=== PATIENT | female | born 1945 | race African-American/Black ===

== ENCOUNTER 2020-10-07 17:06 | Inpatient (IN) | payer OTHER ==
[~2020-10-07] VITALS: Ht 157.5 cm; Wt 53.1 kg
[2020-10-07 17:08] VITALS: BP 124/74
[2020-10-07 19:16] LABS: HEMATOCRIT 27.9 % (37.0-47.0); HEMOGLOBIN 8.6 gm/dL (12.0-15.0); MCH 20.4 pg (26.0-34.0); MCHC 30.8 g/dL (28.0-37.0); MCV 66.2 fL (80.0-100.0); PLATELET COUNT 604 thou/uL (150-400); RDW 17.4 % (10.5-14.5); WBC 8.1 thou/uL (4.0-11.0)
[2020-10-07 19:25] LABS: CALCIUM 9.6 mg/dL (8.5-10.1); CREATININE 0.5 mg/dL (0.6-1.0); POTASSIUM 4.6 mmol/L (3.5-5.1)
[2020-10-07 19:31] LABS: ALBUMIN 2.8 g/dL (3.4-5.0); TOTAL BILIRUBIN 0.3 mg/dL (0.2-1.0); TOTAL PROTEIN 8.4 g/dL (6.4-8.2)
[2020-10-07 19:38] LABS: ABSOLUTE NEUTROPHILS 4.9 thou/uL (1.4-8.2); ANISOCYTOSIS 1+; MICROCYTES 2+; PLATELET ESTIMATE NORMAL
[2020-10-07 19:39] LABS: HYPOCHROMASIA SLIGHT
[2020-10-08] VITALS (8 sets, daily range): BP systolic 115–145; BP diastolic 60–82
[2020-10-08] MEDS ORDERED: NORCO5 PO ×2 (00:17→03:00)
[2020-10-08] MEDS ORDERED: HYDROCODON-ACE1 EAC7 PO (00:17)
[2020-10-08] MEDS ORDERED: GABAPENTIN 100100 MG PO (00:17)
[2020-10-08] MEDS ORDERED: METOPROLOL SUCC25 M1 PO (00:17)
[2020-10-08] MEDS ORDERED: ATORVASTATIN CA10 MG PO (00:17)
[2020-10-08] MEDS ORDERED: BENTYL 10 MG CA10 M1 PO (00:17)
[2020-10-08] MEDS ORDERED: HYDROCHLOROTH12.5 M2 PO (00:18)
[2020-10-08] MEDS ORDERED: K-DUR 20 MEQ T20 MEQ PO (00:18)
[2020-10-08] MEDS ORDERED: POTASSIUM20 PO (03:03)
[2020-10-08] MEDS ORDERED: SANTYL OINTMENT30 G1 TOP (03:05)
[2020-10-08 05:22] LABS: CALCIUM 9.3 mg/dL (8.5-10.1); CREATININE 0.6 mg/dL (0.6-1.0); HEMATOCRIT 24.8 % (37.0-47.0); HEMOGLOBIN 7.9 gm/dL (12.0-15.0); MCH 21.2 pg (26.0-34.0); MCHC 31.9 g/dL (28.0-37.0); MCV 66.5 fL (80.0-100.0); POTASSIUM 3.9 mmol/L (3.5-5.1); RBC 3.73 mil/uL (4.20-5.00); RDW 17.2 % (10.5-14.5); WBC 6.7 thou/uL (4.0-11.0)
[2020-10-08 05:26] LABS: CHOLESTEROL 113 mg/dL (<200); HDL CHOLESTEROL 41 mg/dL (>40); LDL CHOLESTEROL 58 mg/dL (<100); TC:HDL 2.8 Ratio (Not establshd); TRIGLYCERIDE 73 mg/dL (<150); VLDL 15 mg/dL (<40)
[2020-10-08 05:39] LABS: SERUM ASSESSMENT Clear
[2020-10-08] MEDS ORDERED: ASA81BEC PO (06:34)
[2020-10-08] MEDS ORDERED: VITAMIN D3 COM1 EACH PO (06:39)
[2020-10-08] MEDS ORDERED: BIOFREEZE118 ML TOP (06:40)
[2020-10-08] MEDS ORDERED: ACIDOPHILUS CA1 EAC1 PO (06:41)
[2020-10-08] MEDS ORDERED: LOPERAMIDE2 MG PO (06:42)
[2020-10-08] MEDS ORDERED: SUPER THERAVIT1 EACH PO (06:42)
[2020-10-08] MEDS ORDERED: MAGNESIUM400 M1 PO (06:42)
[2020-10-08] MEDS ORDERED: GAS RELIEF80 MG PO (06:43)
[2020-10-08] MEDS ORDERED: TYLENOL EXTRA500 MG PO (06:44)
[2020-10-08 11:24] LABS: URINE BILIRUBIN NEGATIVE (Negative); URINE BLOOD 2+ (Negative); URINE COLOR YELLOW; URINE GLUCOSE-RANDOM* NEGATIVE (Negative); URINE KETONES NEGATIVE (Negative); URINE LEUKOCYTES 3+ (Negative); URINE NITRITE POSITIVE (Negative); URINE PROTEIN (DIPSTICK) NEGATIVE (Negative); URINE SPECIFIC GRAVITY 1.025 (1.005-1.035); URINE UROBILINOGEN 0.2 E.U./dl (0.2-1.0)
[2020-10-08 11:25] LABS: URINE CLARITY CLOUDY
[2020-10-08 11:41] LABS: SQUAMOUS 0-3 Few /LPF (0-3)
[2020-10-08 11:42] LABS: CASTS None Seen /LPF (None Seen); URINE RBC 1-2 Rare /HPF (NONE SEEN); URINE WBC >25 Many /HPF (NONE SEEN)
[2020-10-08 11:43] LABS: BACTERIA >30 Many /HPF (None Seen); CRYSTALS None Seen /LPF (None Seen)
[2020-10-08 11:44] LABS: WBC CLUMPS Packed (None Seen); YEAST Present (None Seen)
--- NOTE | 2020-10-08 15:43 | NUR ---
ASSESSMENT: CM REVIEWED CHART AND ATTEMPTED TO MEET WITH PATIENT BUT SHE WAS OUT OF ROOM. 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 PT IS NEEDING SURGICAL DEBRIDEMENT WITH POSSIBLE VAC PLACEMENT. PT HAS HX OF RIGHT SIDED HEMIPARESIS. CM SPOKE WITH ASTER BELL FROM [facility] AND FAXED UPDATED CLINICAL INFORMATION. ARABELLA RODARTE REPORTS PATIENT HAS ONLY LIVED IN THE LTC FOR ABOUT A WEEK AND CAME TO THEM FROM [facility]. CM WILL CONTINUE TO FOLLOW TO ASSIST NEEDED.
--- NOTE | 2020-10-08 18:49 | NUR ---
PT ADMITED FROM ER. ADMISSION HX AND ASSESSMENT COMPLETED. VSS. CONSULT CALLED IN. HAD RIGHT BUTTOCK WOUND DEBRIDEMENT. WOUND VAC PLACED. NO CONCERNS AT THIS TIME.
[2020-10-09 02:58] VITALS: BP 122/63
[2020-10-09 04:40] VITALS: BP 115/55
[2020-10-09 05:23] LABS: HEMATOCRIT 24.3 % (37.0-47.0); HEMOGLOBIN 7.6 gm/dL (12.0-15.0); MCH 20.9 pg (26.0-34.0); MCHC 31.4 g/dL (28.0-37.0); MCV 66.7 fL (80.0-100.0); RBC 3.65 mil/uL (4.20-5.00); RDW 17.3 % (10.5-14.5); WBC 8.4 thou/uL (4.0-11.0)
[2020-10-09 05:28] LABS: CALCIUM 8.9 mg/dL (8.5-10.1); CREATININE 0.5 mg/dL (0.6-1.0); POTASSIUM 3.7 mmol/L (3.5-5.1)
--- NOTE | 2020-10-09 06:30 | NUR ---
PT SLEPT MOST OF SHIFT. PAIN MEDICATION GIVEN PRIOR TO SHIFT AND PT WAS ASKED IF SHE NEEDED ANYMORE AND SHE STATED "NO". VSS. FOLLOWING POC WITH IVF AND IVPB ANTIBIOTICS. HOURLY ROUNDING.
[2020-10-09 07:15] VITALS: BP 119/57
--- NOTE | 2020-10-09 15:34 | NUR ---
ASSUMED PT CARE THIS AM. PT IS ALERT & ORIENTED X4. PT HAS IV SITE ON R WRIST 20 GAUGE RUNNING NS AND ANTIBIOTICS. PT HAS LEA CATH IN PLACE. PT IS ACCUCHECK ACHS. PT HAS LOW LOSS AIR PUMP AND WOUND VAC. PT C/O OF PAIN AND NAUSEA AND GIVEN PAIN AND NAUSEA MEDICATION PER PT REQUEST. INFORMED LAB TO DRAW VANCO TROUGH THIS AM. REPORT CRITICAL VALUE TO PHARMACIST. GIVEN NEW DOSE OF VANCO TO PT PER PHARMACIST ORDERED. PT STATED SHE DOESN'T LIKE FOOD HERE IN THE HOSPITAL AND BEEN EATING FOOD FROM OUTSIDE. PT ON THE BED, BED ON THE LOWEST POSITION, SIDE RAILS UP, CALL LIGHT WITHIN REACH. WILL CONTINUE TO MONITOR PT. FOLLOW POC.
[2020-10-09 16:44] VITALS: BP 107/60
[2020-10-09 20:49] VITALS: BP 94/49
[2020-10-10 05:36] LABS: HEMATOCRIT 23.3 % (37.0-47.0); HEMOGLOBIN 7.3 gm/dL (12.0-15.0); MCH 20.9 pg (26.0-34.0); MCHC 31.4 g/dL (28.0-37.0); MCV 66.7 fL (80.0-100.0); RBC 3.49 mil/uL (4.20-5.00); RDW 17.6 % (10.5-14.5); WBC 6.7 thou/uL (4.0-11.0)
[2020-10-10 05:42] VITALS: BP 106/58
[2020-10-10 05:42] LABS: CALCIUM 8.3 mg/dL (8.5-10.1); CREATININE 0.5 mg/dL (0.6-1.0); POTASSIUM 3.3 mmol/L (3.5-5.1)
--- NOTE | 2020-10-10 05:46 | NUR ---
PT LYING IN BED. L[facility]AB PROVIDING PAIN RELIEF. TURNING PER PT REQUEST. WOUND VAC INTACT. RESTING COMFORTALY. NO NEEDS VOICED. CALL LIGHT WITHIN REACH. FREQUENT OBSERVATION.
[2020-10-10 08:12] VITALS: BP 117/66
--- NOTE | 2020-10-10 14:27 | HC ---
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 Radu Lomeli on 10/08/2020. HISTORY OF PRESENT ILLNESS: The patient is a 75-year-old woman admitted to [facility] on 10/07/2020. She has a history of immobility, status post cerebrovascular accident with right hemiparesis and has had a chronic right gluteal ulcer with history of chronic osteomyelitis in the setting of diabetes mellitus type 2. The patient's nursing staff at her facility noted the wound was worsening, getting larger with a foul smelling odor. The patient has been seen and admitted at [facility] and evaluated surgically by Dr. Radu Lomeli. She was taken to the operating room yesterday for surgical debridement of skin, subcutaneous tissue and bone for right ischial stage IV pressure ulcer. She is currently on IV vancomycin. Cultures were taken down to subcutaneous tissue and bone. She is on cefepime intravenously as well. Wound VAC was done on the OR. Wound care was consulted. PAST MEDICAL HISTORY: Diabetes mellitus type 2, cerebrovascular accident with right hemiparesis, immobility, neurogenic bladder, severe protein calorie malnutrition, albumin 2.8, history of chronic osteomyelitis of the right ischium. REVIEW OF SYSTEMS: Recent increased drainage, foul smell from the right ischial ulcer. ALLERGIES: PENICILLIN. LABORATORY DATA: White blood count 8.1, hemoglobin 8.6, hematocrit 27.9. Albumin 2.8. CT scan showed chronic osteomyelitis of the right ischial tuberosity. MEDICATIONS: See chart. PHYSICAL EXAMINATION: GENERAL: Shows a well-appearing elderly woman who is alert, pleasant, conversant. Mucous membranes are moist. [facility] [address] [place] [address] CONSULTATION Name: CHRISTI SARAH Room #: 445-P [facility]#: [id number] Admission: 10/07/20 Attend Phys: Maxim Escobedo MD Discharge: Date of : 49 Report #: [id number] NECK: Supple. LUNGS: Respirations unlabored. ABDOMEN: Soft. EXTREMITIES: Shows wound VAC on the right ischial area with treviño foam, wound VAC seals intact. Surrounding tissues are nonerythematous and nonindurated. No lower extremity wound. IMPRESSION: 1. Chronic immobility with right hemiparesis, status post cerebrovascular accident with immobility. 2. Neurogenic bladder. 3. Severe protein calorie malnutrition, albumin 2.8. 4. Chronic right ischial stage IV pressure ulcer with chronic osteomyelitis. 5. Postoperative day #1 on 10/09/2020, surgical debridement including bone of right ischial stage IV pressure ulcer with wound VAC placement. PLAN: IV antibiotics. Wound VAC therapy. We will plan to change the wound VAC again on Sunday. Wound care team will follow. <ELECTRONICALLY SIGNED> By: Jimy Moctezuma MD 10/10/20 1427 [id number] Jimy Moctezuma MD /nt
[2020-10-10 15:26] VITALS: BP 116/59
--- NOTE | 2020-10-10 18:16 | NUR ---
ASSUMED PT CARE THIS AM. PT IS ALERT & ORIENTED X4. PT HAS IV SITE ON R WRIST RUNNING NS @126 AND ANTIBIOTICS. PT IS ON BEDREST AND TURN Q2H. PT HAS LEA CATH IN PLACE, WOUND VAC AND R FOOT BOOT. PT HAS POOR APPETITE. PT C/O OF HIP PAIN AND GIVEN PAIN MEDICATION PER PT REQUEST. NO C/O OF NAUSEA AND VOMITING DURING THE SHIFT. PT FAMILY WAS AT THE BEDSIDE. PT ON THE BED WATCHING TV, BED ON THE LOWEST POSITION, SIDE RAILS UP, CALL LIGHT WITHIN REACH. WILL CONTINUE TO MONITOR PT. FOLLOW POC.
[2020-10-10 18:58] VITALS: BP 107/62
--- NOTE | 2020-10-11 04:38 | NUR ---
PT LYING IN BED. DENIES NEED FOR PAIN MEDICATION. TURNING PER PT REQUEST. RESTING COMFORTABLY. NO NEEDS VOICED. CALL LIGHT WITHIN REACH. FREQUENT OBSERVATION.
[2020-10-11 06:12] LABS: HEMATOCRIT 23.2 % (37.0-47.0); HEMOGLOBIN 7.1 gm/dL (12.0-15.0); MCH 20.5 pg (26.0-34.0); MCHC 30.6 g/dL (28.0-37.0); MCV 67.1 fL (80.0-100.0); RBC 3.46 mil/uL (4.20-5.00); RDW 17.6 % (10.5-14.5); WBC 8.1 thou/uL (4.0-11.0)
[2020-10-11 06:21] VITALS: BP 134/64
[2020-10-11 06:34] LABS: CALCIUM 8.6 mg/dL (8.5-10.1); CREATININE 0.5 mg/dL (0.6-1.0); POTASSIUM 3.6 mmol/L (3.5-5.1)
--- NOTE | 2020-10-11 08:02 | HC ---
[facility] [address] [place] [address] [place] [address] CONSULTATION Name: CHRISTI SARAH Room #: 445-P ADM IN M.R.#: [id number] Admission: 10/07/20 Attend Phys: Maxim Escobedo MD Discharge: Date of : 49 Report #: [id number] THIS REPORT FOR: cc: Fatimah Pressley,Prince Kellogg MD ~ DATE OF SERVICE: 10/08/2020 INFECTIOUS DISEASE CONSULTATION ATTENDING PHYSICIAN: Dr. Escobedo REASON FOR EVALUATION: Right ischial chronic osteomyelitis. HISTORY OF PRESENT ILLNESS: Chart reviewed and the patient examined. This is a 75-year-old woman with known history of diabetes mellitus type 2 complicated by vasculopathy, previous stroke with right-sided hemiparesis with chronic right ischial ulcer dating back roughly year per records. She notes it was worse over recent days and associated foul odor drainage as well. Due to concern about a deep infection, she was brought to the Emergency Room, was evaluated, which was significant microcytic anemia, sed rate of 80. CT of the pelvis did confirm large decubitus ulcer standing to the right ischial tuberosity, adjacent 3 cm fluid collection. There is second sinus track as well. Evidence favors a chronic osteomyelitis involving the ischial tuberosity. It is not clear if she has had significant fevers or chills. She said her appetite has been somewhat ____. Denies pulmonary or gastrointestinal related complaints. She was initiating combination therapy with cefepime and vancomycin. Surgery consult is pending as is wound care. ALLERGIES: Listed to PENICILLIN WHICH CAUSES HIVES, although she states this was extended ____ in the past. MEDICATIONS: Include atorvastatin, enoxaparin, vancomycin, zinc, cholecalciferol, multivitamin, metoprolol, Lactobacillus, aspirin, cefepime, hydrochlorothiazide, gabapentin, hydrocodone. PAST MEDICAL HISTORY: As described above diabetes mellitus type 2 which has been complicated by previous stroke with right-sided hemiparesis, history of neurogenic bladder, osteoarthritis, stage IV decubitus ulcer involving right ischial site, hypertension, hyperlipidemia, chronic anemia which is microcytic. SOCIAL HISTORY: She is disabled, nonsmoker. No ethanol. No illicit drug use. FAMILY HISTORY: Noncontributory. REVIEW OF SYSTEMS: Otherwise, unremarkable. [address] [address] CONSULTATION Name: CHRISTI SARAH Room #: [address] [place] [address] IN ..#: [id number] Admission: 10/07/20 Attend Phys: Maxim Escobedo MD Discharge: Date of : 49 Report #: [id number] PHYSICAL EXAMINATION: GENERAL: She appears chronically ill, undernourished. She is pleasant, cooperative. She is lucid, mild to moderate distress. VITAL SIGNS: Temperature 98.3, pulse 62, respirations 16, blood pressure 120/69. HEENT: Normocephalic. Extraocular muscles intact. NECK: Supple. LUNGS: Generally clear to auscultation, mildly diminished. HEART: Borderline bradycardic. I appreciate a murmur. ABDOMEN: Mildly distended, somewhat firm, nontender. GENITOURINARY AND RECTAL: Deferred. SKIN: Warm, dry. No rashes. Ischial site was evaluated as a stage IV decubitus ulcer seems to manually track to bone, marked degree of superficial inflammatory signs and symptoms. There is significant amount of necrotic tissue associated with naris odor. She does have some degree of pain with the examination. LABORATORY AND X-RAY DATA: Sodium 139, potassium 4.6, chloride 102, bicarbonate is 27, anion gap of 10. BUN and creatinine 24 and 0.5, glucose of 92. Albumin is 2.8, total protein 8.4. Estimated GFR of 147. LFTs unremarkable. CRP of 7.6. CBC: White count of 8.1, H and H 8.6 and 27.9, MCV of 66.2, platelet count of 604 likely indicative of acute phase reactant. CT of the pelvis as described above, large decubitus ulcer extending the right ischial tuberosity, adjacent 3 cm fluid collection, contiguous to primary ulcer, second sinus tract more posteriorly coursing in the median margin of ischial tuberosity, chronic osteomyelitis, changes of the right ischial tuberosity. Sed rate of 80. ASSESSMENT: Chronic right ischial tuberosity, osteomyelitis in the setting of chronic ulceration with underlying diabetes mellitus, vasculopathy, previous stroke, ____, continue combination therapy. At this point, we would expect polymicrobial etiology and Surgery to evaluate. I think would benefit from some sort of debridement and remove the devitalized tissue and perhaps bone biopsy would help confirming diagnosis of chronic osteomyelitis. We are expecting the risks of nosocomial complications and side affects, etc. We will add incentive spirometry. <ELECTRONICALLY SIGNED> By: Prince Rodriguez MD 10/11/20 0802 [id number] Prince Rodriguez MD /nt
[2020-10-11 08:58] VITALS: BP 131/57
--- NOTE | 2020-10-11 10:04 | NUR ---
Assumed care of pt at 0700. IV fluids and IV antibiotics infusing. Fernandez catheter in place. Wound cav in place. Possible discharge to [facility] today. Per ID doctor, pt will need a PICC line before discharge. Call light within reach. Fall precautions in place. Will continue to monitor.
--- NOTE | 2020-10-11 12:30 | NUR ---
WOUND CARE F/U; I WAS ASKED BY MADDIE RUIZ NP TO TAKE THE RIGHT ISCHIUM DRESSING DOWN AND TO PHOTO FOR DISCHARGE. THE WOUND IS APPROX. 6 X 6 X 5. BEEFY RED TISSUE. THE WOUND BLED AFTER REMOVING DRESSING. I USED A PIECE OF SURGIFOAM TO STOP THE BLEEDING, PACKED WITH NS MOIST GAUZE,ABD AND SECURED WITH TAPE. I ASSESSED THE DRESSING AFTER 15 MINUTES AND THERE IS NO STRIKE THROUGH BLEEDING. DISCUSSED WITH JAK.
--- NOTE | 2020-10-11 13:57 | NUR ---
ON-GOING ASSESSMENT: CM REVIEWED CHART AND SPOKE WITH ATTENDING. PT IS PROGRESSING WELL. PT HAD DEBRIDEMENT AND WOUND VAC WAS PLACED AND PT REMAINS ON IV ANBX. PER ATTENDING PATIENT MAY BE STABLE TO DISCHARGE BACK TO FACILITY TOMORROW. CM UPDATED ASTER BELL FROM [facility] AND SENT UPDATED CLINICAL WELL ID RECOMMENDATIONS. ARABELLA RODARTE STATING SHE IS WORKING ON ORDERING THE WOUND VAC. CM ALSO LEFT A VM WITH PATIENTS DAUGHTER JAVIER. CM SPOKE WITH HER THIS AM AND SHE IS AGREEABLE WITH PLAN. CM WILL CONTINUE TO FOLLOW TO ASSIST NEEDED. PT IS HAVING PICC LINE PLACED TODAY AND WILL START MEROPENEM.
[2020-10-11 19:35] VITALS: BP 111/62
--- NOTE | 2020-10-12 02:03 | NUR ---
ASSUMED PT CARE AT 1900.PT C/O PAIN TO HER BUTTOCK,MANAGED WITH MED.PT REPOSITIONED WHILE IN BED.PT HAD A DARK MOD STOOL AT HS.DRSG TO HER BUTTOCK DONE,WOUND WAS BEEFY RED WITH NO S/S OF INFECTION NOTED.LOW AIR LOSS MATTRESS IN PLACE.R SIDED HEMIPARESIS NOTED.CALL LIGHT WITHIN REACH.
[2020-10-12 06:12] VITALS: BP 109/58
[2020-10-12 07:34] VITALS: BP 118/68
--- NOTE | 2020-10-12 11:53 | NUR ---
Pt was lethargic soft spoken this am. She had multiple bouts of dark loose stools. Pt is unable to ambulate so she has to be turned q 2 due to pressure ulcer on her buttock. She also had 2 loose BM's on last nights shift. ordered CT scan of abdomen. Infectious disease called to notify staff pt should be in isolation due to ESBL from wound. Pt is alert and oriented and has a PICC line to left upper arm. She is a possible discharge today to [facility]. She conitnues to be a high fall risk bed is in low position. Will continue to monitor throughout shift.
--- NOTE | 2020-10-12 14:29 | NUR ---
on-going assessment: CM REVIEWED CHART AND SPOKE WITH ATTENDING. PT WAS PROGRESSING TOWARDS DISCHARGE GOALS BUT WAS HAVING ABOMDINAL PAIN. PT HAD CT AND IS NOT DISCHARING TODAY APPEARS IMPACTED AND PER ATTENDING HE HAS ORDERED EMEMAS. CM UPDATED ASTER BELL FROM [facility] SHE REPORTS THEY WILL BE ABLE TO ACCEPT PATIENT ONCE STABLE AND THE WOUND VAC WAS DELIVERED TO THEIR FACILITY TODAY. CM WILL CONTINUE TO FOLLOW TO ASSIST NEEDED. BEDSIDE RN AND PT UPDATED.
[2020-10-12 16:00] VITALS: BP 122/65
[2020-10-12 23:00] VITALS: BP 148/77
[2020-10-13 03:30] VITALS: BP 100/47
--- NOTE | 2020-10-13 05:19 | NUR ---
PER REPORT,PT WAS GIVEN ENEMA AND SHE HAD A LARGE BM.SINCE SHIFT CHANGE,PT CONT T HAVE LOOSE DARK STOOL.DRSG CHANGE DONE WITH EACH.PT REPOSITIONED IN BED PER HER REQUEST.LEA CATH IN PLACE.TYLENOL GIVEN X1 PER PT'S REQUEST FOR PAIN.FALL AND ISOLATION PRECAUTIONS MAINTAINED.CALL LIGHT WITHIN REACH.
[2020-10-13 05:48] LABS: HEMATOCRIT 22.2 % (37.0-47.0); MCH 20.7 pg (26.0-34.0); MCHC 31.3 g/dL (28.0-37.0); MCV 66.2 fL (80.0-100.0); RBC 3.36 mil/uL (4.20-5.00); RDW 17.7 % (10.5-14.5); WBC 8.2 thou/uL (4.0-11.0)
[2020-10-13 06:27] LABS: CALCIUM 8.5 mg/dL (8.5-10.1); CREATININE 0.5 mg/dL (0.6-1.0)
[2020-10-13 07:53] VITALS: BP 139/77
--- NOTE | 2020-10-13 09:41 | PATH ---
[facility] [address] [place] [address] PATHOLOGY RPT PROCEDURE Name: AURORA ESTRADA Room #: 445-P ADM IN M.R.#: [id number] Admission: 10/07/20 Date of : 49 Discharge: Report #: [id number] Path Case #: [id number] [facility] Accession Number: [id number] . 01 Material submitted: . pelvis - RIGHT ISCHIAL TUBEROSITY BONE. Modifiers: right, ISCHIUM . 01 Clinical history: . INCISION AND DRAINAGE SACRAL WOUND RIGHT ISCHIAL TUBEROCITY WOUND . 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 (IUV:track patrol; 10/12/2020) MBR 10/12/2020 1335 Local . 02 Electronically signed: . Adry Patel MD, Pathologist NPI- [id number] . 01 Gross description: . Received in formalin labeled "Aurora Estrada, right tissue tuberosity" is an irregular, hart white unoriented portion of bone measuring 1.6 x 0.9 x 0.5 cm. Specimen is serially sectioned to reveal a hart-white gritty cut surface. The specimen is entirely submitted after decalcification in cassette A1.([facility]; 10/10/2020) GZA/GZA 10/12/2020 [facility]2 Local . 02 Pathologist provided ICD-10: M86.10, M87.9 . 02 CPT . 677341, 942321 Specimen Comment: A courtesy copy of this report has been sent to [phone], [phone] Specimen Comment: [phone], Specimen Comment: Report sent to , DR FUNG / DR MILLER Specimen Comment: A duplicate report has been generated due to demographic updates. Performed at: 01 [facility] [address] [id number] MD Hayes Monterroso MD Phone: [phone] Performed at: 02 [place] [address] PATHOLOGY RPT PROCEDURE Name: AURORA ESTRADA Room #: 445-P ADM IN M.R.#: [id number] Admission: 10/07/20 Date of : 49 Discharge: Report #: [id number] Path Case #: [id number] [address] [facility], [place], [place] [id number] MD Adry Patel MD Phone: [phone]
--- NOTE | 2020-10-13 14:08 | NUR ---
ON-GOING ASSESSMENT: CM REVIEWED CHART AND SPOKE WITH ATTENDING. ATTENDING SPOKE WITH PATIENTS JAYA ARCOS TO UPDATE. WOUND CARE IS FOLLOWING PATIENT AND GENERAL SURGERY SAW PATIENT AND PLANS ARE FOR POSSIBLE OSTOMY. CM UPDATED ASTER BELL AT [facility] AND SENT UPDATED CLINICAL. CM ALSO SPOKE WITH ATTENDING AND ORDERED PT/OT FOR PATIENT. CM ALSO CONTACTED REGISTRATION TO PLEASE UPDATE THE CONTACT INFORMATION AND ADD JAYA ARCOS [phone]. CM WILL CONTINUE TO FOLLOW TO ASSIST NEEDED.
[2020-10-13 15:12] LABS: % SATURATION 7 % (20-39); IRON 12 ug/dL (50-170); TIBC 165 ug/dL (250-450)
[2020-10-13 15:14] VITALS: BP 128/69
[2020-10-13 15:40] LABS: FOLIC ACID 11.5 ng/mL (8.6-58.9)
[2020-10-13 19:45] VITALS: BP 114/65
--- NOTE | 2020-10-13 20:05 | NUR ---
ASSUMED PT CARE THIS AM. PT IS ALERT & ORIENTED X4/ PT HAS IV SITE ON L UA SINGLE LUMEN PICC LINE SALINE LOCKED. PT IS ON ROOM AIR. PT IS ON ISOLATION CHART DUE TO ESBL. DID WOUND CARE ON R ISCHIAL TUBEROSITY WITH NS AND SALINE WET TO DRY DRESSING. PT HAD KUB THIS AFTERNOON. PT TOLERATED MEDICATION AND DIET WELL. NO C/O OF PAIN, NAUSEA AND VOMITING. PT ON THE BED, BED ON THE LOWEST POSITION, SIDE RAILS UP, CALL LIGHT WITHIN REACH. WILL CONTINUE TO MONITOR PT. FOLLOW POC.
[2020-10-14 03:25] VITALS: BP 101/52
--- NOTE | 2020-10-14 03:54 | NUR ---
PT C/O PAIN TO HER BUTTOCK,MANAGED WITH MED.PT STILL HAVING LOOSE DARK STOOL.PT REF ALL HER STOOL SOFTNER [facility] AT HS.PT REPOSITIONED IN BED PER HER REQUEST.PT IS SUPPOSED TO GET A DIVERTING COLOSTOMY DUE TO HER SACRAL WOUND.PT STILL WORRIED ABOUT HAVING A COLOSTOMY.PT EDUCATED ON THE IMPORTNACE OF HAVING THE COLOSTOMY.FALL AND ISOLATION PRECAUTION MAINTAINED.CALL LIGHT WITHIN REACH.
[2020-10-14 07:35] VITALS: BP 120/64
[2020-10-14 09:22] LABS: HEMATOCRIT 23.7 % (37.0-47.0); HEMOGLOBIN 7.4 gm/dL (12.0-15.0); MCH 20.8 pg (26.0-34.0); MCHC 31.2 g/dL (28.0-37.0); MCV 66.6 fL (80.0-100.0); RBC 3.56 mil/uL (4.20-5.00); RDW 18.1 % (10.5-14.5); WBC 7.1 thou/uL (4.0-11.0)
[2020-10-14 09:36] LABS: CALCIUM 8.6 mg/dL (8.5-10.1); CREATININE 0.5 mg/dL (0.6-1.0); POTASSIUM 3.9 mmol/L (3.5-5.1)
--- NOTE | 2020-10-14 10:01 | NUR ---
ORDERS RECEIVED, CHART REVIEWED. PLAN FOR DIVERTING COLOSTOMY 10/15, WILL NEED NEW ORDERS, THEREFORE OT EVAL DEFERRED AND TO BE ON HOLD AT THIS TIME. WILL AWAIT POST OP ORDERS AND SEE AFTER. THANK YOU.
--- NOTE | 2020-10-14 12:01 | NUR ---
ON-GOING ASSESSMENT: CM REVIEWED CHART AND SPOKE WITH ATTENDING PHYSICIAN WHO REPORTS PATIENT IS GOING TO HAVE A DIVERTING COLOSTOMY TOMORROW. CM UPDATED LIASON ARABELLA FROM [facility]. CM WILL CONTINUE TO FOLLOW TO ASSIST NEEDED.
[2020-10-14 16:17] VITALS: BP 145/71
--- NOTE | 2020-10-14 19:52 | NUR ---
Pt is AXOX4. She is bedridden with diarreha x5. Everytime we had to change dressing on pressure ulcer on buttock. She signed consent for surgery tomorrow for a colostomy. Also signed consent to receive blood if needed. Fernandez was leaking so we had to take it out and put a new one in. Pt ocassionally reports discomfort at pressure injury site and is encouraged to reposition and turn regularly to prevent pressure at site and avoid additional pressure ulcers. High fall risk bed in low position fall precautions in place. Call light within reach.
[2020-10-15] VITALS (12 sets, daily range): BP systolic 130–149; BP diastolic 59–86
[2020-10-15 06:01] LABS: HEMATOCRIT 23.5 % (37.0-47.0); HEMOGLOBIN 7.3 gm/dL (12.0-15.0); MCH 20.5 pg (26.0-34.0); MCHC 31.1 g/dL (28.0-37.0); RBC 3.56 mil/uL (4.20-5.00); WBC 7.7 thou/uL (4.0-11.0)
[2020-10-15 06:29] LABS: CALCIUM 8.7 mg/dL (8.5-10.1); CREATININE 0.5 mg/dL (0.6-1.0); POTASSIUM 3.5 mmol/L (3.5-5.1)
--- NOTE | 2020-10-15 08:08 | NUR ---
PT LYING IN BED. DENIES NEED FOR PAIN MEDS. INCONTINENT OF BOWEL. RESTING COMFORTABLY. NO NEEDS VOICED. CALL LIGHT WITHIN REACH. FREQUENT OBSERVATION.
--- NOTE | 2020-10-15 14:22 | NUR ---
ON-GOING ASSESSMENT: CM REVIEWED CHART AND SPOKE WITH ATTENDING. PT HAD DIVERTING COLOSTOMY TODAY. CM FAXED UPDATED CLINICAL TO ASTER FROM [facility]. PT/OT VARIANCED DUE TO PATIENTS SURGERY TODAY. CM WILL CONTINUE TO FOLLOW, NO ANTICIPATED WEEKEND DISCHARGE.
--- NOTE | 2020-10-15 16:26 | NUR ---
Pt went down for colonoscopy at 750 am. She returned from surgery at 12:15. AxOx4 c/o pain level 6 resolved with meds. Also c/o sore throat ordered cephacol lozenges. Fernandez patent and draining yellow urine. Pt remains on bedrest. Bed in low position fall precautions in place. Call light within reach. Will monitor until end of shift.
--- NOTE | 2020-10-16 06:05 | NUR ---
Pt. rested quietly during the night when checked on during frequent rounds. She offers no complaints. Colostomy is intact and she has been passing some flatus. Small amount of blood in the bag. She offers no c/o pain.
[2020-10-16 07:35] VITALS: BP 119/62
[2020-10-16 07:50] LABS: CALCIUM 8.5 mg/dL (8.5-10.1); CREATININE 0.5 mg/dL (0.6-1.0); MAGNESIUM 1.9 mg/dL (1.8-2.4); PHOSPHORUS 2.5 mg/dL (2.5-4.9); POTASSIUM 3.2 mmol/L (3.5-5.1)
[2020-10-16 10:56] LABS: HEMOGLOBIN 6.9 gm/dL (12.0-15.0)
[2020-10-16 10:57] LABS: HEMATOCRIT 22.9 % (37.0-47.0); MCH 20.3 pg (26.0-34.0); MCHC 30.2 g/dL (28.0-37.0); MCV 67.3 fL (80.0-100.0); RBC 3.4 mil/uL (4.20-5.00); RDW 18.4 % (10.5-14.5); WBC 10.5 thou/uL (4.0-11.0)
--- NOTE | 2020-10-16 15:00 | NUR ---
Pt is Ax0x4. Had large soft stool at beginning of shift changed dressing on buttock wound. Picc line to upper left arm flushed and patent. Pt eat refused bowel medications. Remains on bed rest. Bed in low position fall precautions in place. Turned q 2 hours to prevent further breakdown. No c/o pain on this shift. Call light is within reach. Gave report at 1400 to remaining RN.
[2020-10-16 16:05] VITALS: BP 109/60
[2020-10-16 23:08] VITALS: BP 102/64
[2020-10-17 06:20] LABS: CALCIUM 8.3 mg/dL (8.5-10.1); CREATININE 0.4 mg/dL (0.6-1.0); MAGNESIUM 1.9 mg/dL (1.8-2.4); POTASSIUM 3.3 mmol/L (3.5-5.1)
[2020-10-17 07:50] LABS: HEMATOCRIT 21.3 % (37.0-47.0); HEMOGLOBIN 6.5 gm/dL (12.0-15.0); MCH 20.3 pg (26.0-34.0)
[2020-10-17 07:51] LABS: MCHC 30.5 g/dL (28.0-37.0); MCV 66.5 fL (80.0-100.0); RBC 3.2 mil/uL (4.20-5.00); WBC 7.5 thou/uL (4.0-11.0)
[2020-10-17 07:54] VITALS: BP 114/66
[2020-10-17 09:27] VITALS: BP 104/54; BP 106/64; BP 108/56; BP 108/60
--- NOTE | 2020-10-17 10:32 | NUR ---
Assumed care of pt at 0700. Pt a&ox4. RN notices hg 6.9 last drawn the previous day in the am. Provider notified. Hg redrawn - 6.5. Blood transfusion ordered. Blood transfusing. Colostomy in place. Fernandez catheter in place. PICC line in place. Dressing c/d/i. W2h turn. Call light within reach. Fall precautions in place. Will continue to monitor.
[2020-10-17 15:08] VITALS: BP 102/62
[2020-10-17 18:08] LABS: HEMATOCRIT 25.5 % (37.0-47.0); HEMOGLOBIN 8.3 gm/dL (12.0-15.0)
[2020-10-17 20:47] VITALS: BP 105/41
--- NOTE | 2020-10-18 02:41 | NUR ---
PT IS A/O X4 AND IS ON BED REST. ROOM AIR. VSS. AFEBRILE. DENIES C/O PAIN OR DISCOMFORT. REPOSITIONED OFTEN FOR COMFORT. DRSG TO BUTTOCKS IS C/D/I. COLOSTOMY HAS STARTED TO PRODUCE DARK BROWN LOOSE STOOLS. PT REMAINS HAVING INCONTINENCE OF STOOL FROM THE RECTUM. LEA IN PLACE AND IS DRAINING APPROPRIATELY. FALL PRECAUTIONS IN PLACE, CALL LIGHT IS WITHIN REACH. WILL CONTINUE TO MONITOR.
[2020-10-18 07:20] VITALS: BP 123/67
[2020-10-18 08:42] LABS: CALCIUM 8.4 mg/dL (8.5-10.1); CREATININE 0.5 mg/dL (0.6-1.0); MAGNESIUM 1.7 mg/dL (1.8-2.4); POTASSIUM 3.4 mmol/L (3.5-5.1)
--- NOTE | 2020-10-18 10:02 | NUR ---
OSTOMY CARE; AWAKE, ALERT, COOPERATIVE, POUCH EDGES LOOSE, NEW POUCH BEN 2 PIECE SYSTEM APPLIED W/ ADAPT RING UNDER WAFER, STOMA RED VIABLE BUDDED W/ STOMA SUPPORT BRIDGE IN PLACE, SMALL AMT LIQ STOOL NOTED, RECEPTIVE TO EDUCATION, QUESTIONS ANSWERED REGARDING OSTOMY CARE/MANAGEMENT, INFO AND SUPPLIES PLACED AT BS, WILL CONT TO FOLLOW RECOMMENDATIONS; CHANGE POUCH Q 3-5 DAYS AND PRN, EMPTY PRN ASSOCIATE PROFESSOR OF AUTOMATION AWARE
--- NOTE | 2020-10-18 10:11 | NUR ---
Assumed care of pt at 0700. Pt a&ox4. Flat affect. Colostomy in place. Draining liquid stool. Dressing c/d/i. Fernandez catheter in place. PICC line in place. Pain controlled. Call light within reach. Fall precautions in place. Will continue to monitor.
[2020-10-18 15:38] VITALS: BP 120/64
--- NOTE | 2020-10-18 15:45 | NUR ---
on-going assessment: cm reviewed chart and spoke with attending. cm updated liason from [facility] and faxed updated clinical including ostomy note. cm spoke with patients daughter kelly to update and possible discharge soon. PT WAS ADVANCED TO FULL LIQUIDS TODAY. CM WILL CONTINUE TO FOLLOW AND AWAITING UNTIL PT IS CLEARED BY SURGERY FOR D/C.
[2020-10-18 21:18] VITALS: BP 131/65
--- NOTE | 2020-10-19 02:14 | NUR ---
ASSESSED AT START OF SHIFT. PT RESTING IN BED. DENIES PAIN, NAUSEA/VOMITING. IV INTACT AND ABX INFUSING. EVENING MEDS GIVEN AND PT DAPHNE IT WELL. REPOSITIONED FOR COMFORT. LIQUID DARK YELLOW COLOR OUTPUT NOTED IN COLOSTOMY BAG. FOLLEY TO D/D. ISOLATION MAINTAINED. FALL PREC IN PLACE AND CALL LIGHT AT REACH.
[2020-10-19 04:21] VITALS: BP 122/61
[2020-10-19 09:02] VITALS: BP 117/61
--- NOTE | 2020-10-19 11:27 | NUR ---
Assumed care of pt at 0700. Pt a&ox4. Fernandez catheter and colostomy in place. Dressing changed. IV antibiotics infusing. Denies pain. Call light within reach. Fall precautions in place. Will continue to monitor.
--- NOTE | 2020-10-19 13:39 | NUR ---
ON-GOING ASSESSMENT: ALESSANDRO REVIEWED CHART AND SPOKE WITH ATTENDING WHO REPORTS PT WILL BE MEDICALLY STABLE TO DISCHARGE BACK TO HER FACILITY IN 1-2 DAYS. ALESSANDRO [address]PO[address]. SEE WHO REPORTS PT WILL NEED TO REMAIN ON CURRENT IV ANBX FOR ABOUT 4 WEEKS LONGER AND GET WEEKLY LABS. CM FAXED UPDATED CLINICAL AND NOTIFIED ARABELLA RODARTE FROM [facility] [place] WHO REPORTS THAT SHOULD BE FINE AND SHE WILL MAKE SURE FACILITY IS OK WITH GALE OF ANBX. PT ALREADY HAS PICC LINE. CM WILL CONTINUE TO FOLLOW TO ASSIST NEEDED. [facility]ER REPORTS THEY STILL HAVE WOUND VAC AT THE FACILITY. ALESSANDRO SPOKE WITH [employer]SEMBLER [employer]HICLE IN WOUND CARE THEY ROUNDED AND SHE STATED FACILITY CAN APPLY VAC WHEN PT ARRIVES TO THEM.
[2020-10-19 19:37] VITALS: BP 138/64
--- NOTE | 2020-10-20 02:28 | NUR ---
ASSUMED CARE OF PT AT SHIFT CHANGE. PT IS AOX3-4 AND LETS NEEDS BE KNOWN. FALL PERCAUTION IN PLACE. PT HAS R SIDED WEAKNESS. LEA IN PLACE. COLOSTOMY IN PLACE AND FUNCTIONAL. PT HAD SOME RECTAL DRAINAGE. PT SLEPT PART OF THE SHIFT. VSS AND NO S/S OF ACUTE DISTRESS. PT TOLERATING PO DIET. WILL CONTINUE TO MONITOR FOR CHANGES.
[2020-10-20 05:02] VITALS: BP 165/81
[2020-10-20 05:55] VITALS: BP 152/67
[2020-10-20 07:25] VITALS: BP 145/67
--- NOTE | 2020-10-20 11:31 | NUR ---
ASSUMED PT CARE THIS AM. PT IS ALERT & ORIENTED X4. PT HAS IV SITE ON L UA SINGLE LUMEN PICC LINE. PT IS ON BREDREST. PT HAS LEA CATH IN PLACE AND OSTOMY. DID WOUND CARE AND TOOK PICTURE ON THE R BUTTOCK. PT IS ON ROOM AIR. INFORMED DR THAT PT WAS HAVING BM VIA RECTUM. CALLED DR MILLER THAT OSTOMY NURSE WILL REMOVE OSTOMY ESME TOMORROW MORNING INSTEAD TODAY. PT TOLERATED MEDICATION AND DIET WELL. GIVEN PAIN MEDICATION PER PT REQUEST. PT HAS BOOTS ON. PT ON THE BED, BED ON THE LOWEST POSITION, SIDE RAILS UP, CALL LIGHT WITHIN REACH. WILL CONTINUE TO MONITOR PT. FOLLOW POC.
--- NOTE | 2020-10-20 14:09 | NUR ---
ON-GOING ASSESSMENT: CM REVIEWED CHART AND SPOKE WITH ATTENDING. ATTENDING STATING STILL MONITORING PATIENTS OUTPUT AND PLAN FOR LIKELY [place] [facility] [place]PDATED [facility] [place] [facility] [place] CM FAXED UDPATED CLINICAL. CM ALSO UPDATED JAVIER PTS DAUGHTER. CM WILL CONTINUE TO FOLLOW.
[2020-10-20 15:45] VITALS: BP 122/58
[2020-10-20 19:55] VITALS: BP 134/68
[2020-10-20 20:42] LABS: HEMATOCRIT 24.7 % (37.0-47.0); HEMOGLOBIN 7.9 gm/dL (12.0-15.0); MCH 21.8 pg (26.0-34.0); MCHC 31.8 g/dL (28.0-37.0); MCV 68.5 fL (80.0-100.0); RBC 3.6 mil/uL (4.20-5.00); RDW 20.1 % (10.5-14.5); WBC 9.2 thou/uL (4.0-11.0)
[2020-10-20 20:52] LABS: CALCIUM 8.7 mg/dL (8.5-10.1); CREATININE 0.5 mg/dL (0.6-1.0); MAGNESIUM 1.9 mg/dL (1.8-2.4); POTASSIUM 3.8 mmol/L (3.5-5.1)
[2020-10-21 06:09] LABS: HEMATOCRIT 24.2 % (37.0-47.0); HEMOGLOBIN 7.7 gm/dL (12.0-15.0); MCHC 31.8 g/dL (28.0-37.0); MCV 69.1 fL (80.0-100.0); RBC 3.51 mil/uL (4.20-5.00); RDW 19.6 % (10.5-14.5); WBC 8.3 thou/uL (4.0-11.0)
[2020-10-21 06:27] LABS: CALCIUM 8.5 mg/dL (8.5-10.1); CREATININE 0.5 mg/dL (0.6-1.0); MAGNESIUM 1.9 mg/dL (1.8-2.4); POTASSIUM 3.7 mmol/L (3.5-5.1)
--- NOTE | 2020-10-21 06:51 | NUR ---
ASSUMED PT'S CARE THIS PM SHIFT. ALERT AND ORIENTED. VSS. OSTOMY CHANGED THIS SHIFT DUE TO LEAKAGE. DRESSING TO BUTTOCKS CHANGED THIS SHIFT. LEA IN PLACE FOR VOIDING. MEDS GIVEN PER EMAR. ANTICIPATING DC TODAY.
[2020-10-21 07:40] VITALS: BP 120/74
[2020-10-21 08:35] VITALS: BP 120/74
--- NOTE | 2020-10-21 09:13 | NUR ---
OSTOMY CARE; AWAKE, ALERT, COOPERATIVE, DAUGHTER AT BS, STOMA SUPPORT BRIDGE REMOVED PER DR MILLER ORDERS, REMOVED W/OUT DIFFICULTY, STOMA PINKISH RED VIABLE BUDDED W/ SCANT LIQ BROWN STOOL NOTED, PERISTOMAL SKIN INTACT, NEW POUCH BEN 2 PIECE SYSTEM W/ ADAPT RING APPLIED, SUPPLIES AND INFO AT BS RECOMMENDATIONS; CHANGE POUCH Q 3-5 DAYS AND PRN, EMPTY PRN TOP WADDY AWARE
--- NOTE | 2020-10-21 11:46 | NUR ---
ASSUMED PT CARE THIS AM. PT IS ALERT & ORIENTED X4. PT HAS L UA SINGLE LUMEN PICC LINE. PT HAS LEA AND COLOSTOMY ON. PT IS ON ROOM AIR. PT TOLERATED MEDICATION AND DIET WELL. NO C/O OF NAUSEA AND VOMITING THIS AM. PT DAUGHTER WAS AT THE BEDSIDE. WILL CONTINUE TO MONITOR PT. FOLLOW POC.
[2020-10-21] MEDS ORDERED: MEROPENEM1 GM IV (13:32)
[2020-10-21] MEDS ORDERED: VANCO 750750 MG/150 IV (13:33)
--- NOTE | 2020-10-21 14:22 | NUR ---
ON-GOING ASSESSMENT: CM REVIEWED CHART AND SPOKE WITH ATTENDING. PT IS MEDICALLY STABLE TO [place] [facility] [place]. CM NOTIFIED LIASON [place] [facility] [place] CONFIRMED THEY CAN ACCEPT HER TODAY AND THEY HAVE ALREADY ARRANGED STRETCHER TRANSPORT FOR 1500. BEDSIDE RN, PATIENT, AND HER DAUGHTER ARE AWARE. CHART COPY WAS ORDERED. CM FAXED D/C PAPERWORK TO THE FACILITY AND CONFIRMED THEY RECEIVED IT. PT REPORTS NO FURTHER QUESTIONS OR NEEDS FROM CM. PTS DAUGHTER ISRRAEL IS AWARE AND AGREEABLE WITH PLAN. BEDSIDE RN HAS THE NUMBER FOR REPORT. CASE CLOSED.
== END 2020-10-21 15:20 | DRG 579 ==
LOC: ER 17:06 → EROBS 21:25 → 4S 21:25
PROVIDERS: Anesthesiology; Internal Medicine; Nurse Practitioner Family; ADMIT Hospitalist; ATTEND Hospitalist
PROC: 0QB20ZZ Excision of Right Pelvic Bone, Open Approach (ICD-10-PCS; principal; 2020-10-08)
PROC: 0D1M4Z4 Bypass Descending Colon to Cutaneous, Percutaneous Endoscopic Approach (ICD-10-PCS; 2020-10-15)
PROC: 30233N1 Transfusion of Nonautologous Red Blood Cells into Peripheral Vein, Percutaneous Approach (ICD-10-PCS; 2020-10-17)
PROC: 05HY33Z Insertion of Infusion Device into Upper Vein, Percutaneous Approach (ICD-10-PCS; 2020-10-21)
DX: L89.314 Pressure ulcer of right buttock, stage 4 (principal); E43 Unspecified severe protein-calorie malnutrition; M86.8X8 Other osteomyelitis, other site; I69.351 Hemiplegia and hemiparesis following cerebral infarction affecting right dominant side; M19.90 Unspecified osteoarthritis, unspecified site; I10 Essential (primary) hypertension; E78.5 Hyperlipidemia, unspecified; E11.69 Type 2 diabetes mellitus with other specified complication; N31.9 Neuromuscular dysfunction of bladder, unspecified; R53.81 Other malaise; K59.00 Constipation, unspecified; D50.9 Iron deficiency anemia, unspecified; Z88.0 Allergy status to penicillin; Z68.21 Body mass index [BMI] 21.0-21.9, adult
CPT/HCPCS: 10195; 27000; 50010; 50101; 50366; 50386; 50403; 50555; 50643; 52265; 53307; 53310; 54118; 56462; 56526; 57092; 57119; 57120; 58574; 58586; 62110; 62900; 70005

== ENCOUNTER → 2020-11-03 | Outpatient (CLI) | payer OTHER ==
[~2020-11-03] MED LIST: ACIDOPHILUS CA1 EAC1 PO; ASA81BEC PO; ATORVASTATIN CA10 MG PO; BENTYL 10 MG CA10 M1 PO; BIOFREEZE118 ML TOP; GABAPENTIN 100100 MG PO; GAS RELIEF80 MG PO; HYDROCHLOROTH12.5 M2 PO; HYDROCODON-ACE1 EAC7 PO; K-DUR 20 MEQ T20 MEQ PO; LOPERAMIDE2 MG PO; MAGNESIUM400 M1 PO; MEROPENEM1 GM IV; METOPROLOL SUCC25 M1 PO; NORCO5 PO; POTASSIUM20 PO; SANTYL OINTMENT30 G1 TOP; SUPER THERAVIT1 EACH PO; TYLENOL EXTRA500 MG PO; VANCO 750750 MG/150 IV; VITAMIN D3 COM1 EACH PO
== END ==
LOC: HYPER 10:52
PROVIDERS: ATTEND Emergency Medicine
DX: E11.622 Type 2 diabetes mellitus with other skin ulcer (principal); L89.314 Pressure ulcer of right buttock, stage 4; L98.412 Non-pressure chronic ulcer of buttock with fat layer exposed; D63.8 Anemia in other chronic diseases classified elsewhere; R54 Age-related physical debility; I10 Essential (primary) hypertension; E78.5 Hyperlipidemia, unspecified; Z68.21 Body mass index [BMI] 21.0-21.9, adult; E44.0 Moderate protein-calorie malnutrition; Z79.82 Long term (current) use of aspirin; Z79.899 Other long term (current) drug therapy; Z93.3 Colostomy status

== ENCOUNTER → 2020-12-08 | Outpatient (CLI) | payer OTHER | LOC: HYPER 08:09 | PROVIDERS: ATTEND Emergency Medicine | DX: E11.622 Type 2 diabetes mellitus with other skin ulcer (principal); L89.314 Pressure ulcer of right buttock, stage 4; L98.411 Non-pressure chronic ulcer of buttock limited to breakdown of skin; E44.0 Moderate protein-calorie malnutrition; R54 Age-related physical debility; D63.8 Anemia in other chronic diseases classified elsewhere; E78.5 Hyperlipidemia, unspecified; I10 Essential (primary) hypertension; Z68.21 Body mass index [BMI] 21.0-21.9, adult; Z79.82 Long term (current) use of aspirin; Z79.899 Other long term (current) drug therapy; Z93.3 Colostomy status ==

== ENCOUNTER → 2020-12-22 | Outpatient (CLI) | payer OTHER | LOC: HYPER 07:47 | PROVIDERS: ATTEND Emergency Medicine | DX: E11.622 Type 2 diabetes mellitus with other skin ulcer (principal); L89.314 Pressure ulcer of right buttock, stage 4; L98.411 Non-pressure chronic ulcer of buttock limited to breakdown of skin; R54 Age-related physical debility; D63.8 Anemia in other chronic diseases classified elsewhere; I10 Essential (primary) hypertension; E78.5 Hyperlipidemia, unspecified; E44.0 Moderate protein-calorie malnutrition; Z68.21 Body mass index [BMI] 21.0-21.9, adult; Z93.3 Colostomy status; Z79.82 Long term (current) use of aspirin; Z79.899 Other long term (current) drug therapy ==

== ENCOUNTER → 2021-01-05 | Outpatient (CLI) | payer OTHER | LOC: HYPER 07:51 | PROVIDERS: ATTEND Emergency Medicine | DX: E11.622 Type 2 diabetes mellitus with other skin ulcer (principal); L89.314 Pressure ulcer of right buttock, stage 4; L98.411 Non-pressure chronic ulcer of buttock limited to breakdown of skin; E44.0 Moderate protein-calorie malnutrition; R54 Age-related physical debility; D63.8 Anemia in other chronic diseases classified elsewhere; I10 Essential (primary) hypertension; E78.5 Hyperlipidemia, unspecified; Z68.21 Body mass index [BMI] 21.0-21.9, adult; Z79.82 Long term (current) use of aspirin; Z79.899 Other long term (current) drug therapy ==

== ENCOUNTER 2021-01-24 13:37 | Inpatient (IN) | payer OTHER ==
[~2021-01-24] VITALS: Ht 160 cm; Wt 56.7 kg
[2021-01-24 13:38] VITALS: BP 93/51
[2021-01-24 14:51] LABS: HEMATOCRIT 31.9 % (37.0-47.0); HEMOGLOBIN 9.3 gm/dL (12.0-15.0); MCH 18.8 pg (26.0-34.0); MCHC 29.3 g/dL (28.0-37.0); MCV 64.2 fL (80.0-100.0); PLATELET COUNT 244 thou/uL (150-400); RBC 4.96 mil/uL (4.20-5.00); RDW 18.9 % (10.5-14.5); WBC 32.7 thou/uL (4.0-11.0)
[2021-01-24 14:54] LABS: CALCIUM 9.1 mg/dL (8.5-10.1); CREATININE 4.1 mg/dL (0.6-1.0); POTASSIUM 5.5 mmol/L (3.5-5.1)
[2021-01-24 15:03] LABS: URINE BILIRUBIN NEGATIVE (Negative); URINE BLOOD NEGATIVE (Negative); URINE COLOR YELLOW; URINE GLUCOSE-RANDOM* NEGATIVE (Negative); URINE KETONES NEGATIVE (Negative); URINE NITRITE-REFLEX NEGATIVE (Negative); URINE PROTEIN (DIPSTICK) 3+ (Negative); URINE SPECIFIC GRAVITY <= 1.005 (1.005-1.035); URINE UROBILINOGEN 0.2 E.U./dl (0.2-1.0)
[2021-01-24 15:04] LABS: ALBUMIN 2.6 g/dL (3.4-5.0); TOTAL BILIRUBIN 0.3 mg/dL (0.2-1.0); TOTAL PROTEIN 7.6 g/dL (6.4-8.2)
[2021-01-24 15:04] LABS: URINE CLARITY CLOUDY; URINE LEUKOCYTES-REFLEX 3+ (Negative)
[2021-01-24 15:30] LABS: CASTS None Seen /LPF (None Seen); SQUAMOUS 0-3 Few /LPF (0-3)
[2021-01-24 15:31] LABS: AMORPHOUS PHOSPHATES Moderate /LPF (None Seen); CRYSTALS None Seen /LPF (None Seen); URINE RBC 1-2 Rare /HPF (NONE SEEN); URINE WBC-REFLEX 6-15 Few /HPF (0-5)
[2021-01-24 16:02] LABS: ABSOLUTE NEUTROPHILS 28.1 thou/uL (1.4-8.2); ANISOCYTOSIS 1+; HYPOCHROMASIA 1+; MICROCYTES 1+
--- NOTE | 2021-01-24 19:02 | NUR ---
VAT CONSULTED FOR CVAD.PT'S LABS,MEDSMHXMORDER AND CONSENT VERIFIED. RIJ WAS WIDELY PATENT WITH USG. 6FR TL JACC 25CM INSERTED X1 STICK TO 8CM EXTERNAL. PT TOLERATED WELL. STAT CXR ORDERED.
--- NOTE | 2021-01-24 19:12 | NUR ---
rifrancisco released for immediate use per protocol to jimmy simmons
[2021-01-24 23:54] VITALS: BP 97/48
[2021-01-25 04:30] VITALS: BP 104/49
[2021-01-25 05:58] LABS: HEMATOCRIT 24.3 % (37.0-47.0); HEMOGLOBIN 7.4 gm/dL (12.0-15.0); MCH 19.5 pg (26.0-34.0); MCHC 30.7 g/dL (28.0-37.0); MCV 63.7 fL (80.0-100.0); RBC 3.81 mil/uL (4.20-5.00); RDW 18.8 % (10.5-14.5); WBC 19.4 thou/uL (4.0-11.0)
[2021-01-25 06:22] LABS: CALCIUM 8.5 mg/dL (8.5-10.1)
[2021-01-25 06:23] LABS: CREATININE 2.6 mg/dL (0.6-1.0); POTASSIUM 4.2 mmol/L (3.5-5.1)
--- NOTE | 2021-01-25 07:35 | EKG ---
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
[2021-01-25 12:34] LABS: ALBUMIN 2.3 g/dL (3.4-5.0); PHOSPHORUS 4.4 mg/dL (2.6-4.7)
[2021-01-25 15:41] VITALS: BP 111/48
[2021-01-25 16:23] VITALS: BP 111/48
[2021-01-25 17:00] VITALS: BP 105/56
[2021-01-25 19:53] VITALS: BP 111/54
--- NOTE | 2021-01-25 19:57 | NUR ---
PT TO THE UNIT FROM THE EMERGENCY ROOM - PT ORINETED TO ROOM AND BEDSPACE - PT NOTED TO HAVE PROFO BOOT ON R LOWER LEG AND FOOR - R SIDE UNABLE TO MOVE LEG IS ABLE TO LIGHTLY SQUEEZE WITH R HAND AND MOVE RIGHT ARM A LITTLE. PT DAPHNE DIET AND FLUIDS. IV FLUIDS CONT ORDERED. PT ORIENTED X 2. FAMILY AT THE BEDSIDE. NO CO'S OF PAIN OR NAUSEA. LEA CATH PRESENT. NO CO'S AT THE PRESENT TIME.
[2021-01-25 22:30] VITALS: BP 124/50; BP 130/62
[2021-01-26 04:19] VITALS: BP 128/58
[2021-01-26 06:28] LABS: HEMATOCRIT 26.7 % (37.0-47.0); HEMOGLOBIN 8.2 gm/dL (12.0-15.0); MCH 20.3 pg (26.0-34.0); MCHC 30.9 g/dL (28.0-37.0); MCV 65.8 fL (80.0-100.0); RBC 4.05 mil/uL (4.20-5.00); RDW 20.1 % (10.5-14.5); WBC 12.2 thou/uL (4.0-11.0)
[2021-01-26 06:45] LABS: ALBUMIN 2.1 g/dL (3.4-5.0); CALCIUM 8.4 mg/dL (8.5-10.1); PHOSPHORUS 2.8 mg/dL (2.5-4.9); POTASSIUM 3.6 mmol/L (3.5-5.1)
[2021-01-26 06:48] LABS: CREATININE 1.2 mg/dL (0.6-1.0)
--- NOTE | 2021-01-26 07:01 | NUR ---
ASSUMED CARE OF PT AT 1900. PT IS AOX2-3 76F UROSEPSIS PT. ADMINISTERED ALL ORDERED ANTIBIOTICS AND MEDS EARLY IN AFTERNOON. AFTERWARDS, GAVE 1 UNIT PRBC FOR HGB 7.3 FROM HEMATOURESIS. MATCHED, COSIGNED, AND ADMINISTERED WITH NO SIGNS OR SYMPTOMS OF REACTION. 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 AFTERWARDS, ALL ADMIT CHECKLIST COMPLETED. WILL GET CONSENTS SIGNED BY DAUGHTER DPSHAWNA IN AM. PT VERBALIZED NO PAIN THROUGHOUT THE NIGHT. LEA PATENT, WITH SOME SEDIMENT BUT NO BLOOD CLOTS. PT IS WEAK ON THE R DUE TO PAST CVA. LEA CHRONIC FOR NEUROGENIC BLADDER. BLOOD SUGAR IN THE 80S, WILL ENCOURAGE TO EAT SOME IN AM. BOOT R FOOT, SMALL STG 4 ULCER ON R BUTTOCK PICTURED, DOCUMENTED, AND REDRESSED. LOW OUTPUT THROUGH OSTOMY. SLEPT QUIETLY THROUGHOUT THE NIGHT AFTERWARDS WITH NO COMPLAINTS, OWNS SOME. WILL CONTINUE TO MONITOR AND PASS ON TO DAY SHIFT RN.
[2021-01-26 07:35] VITALS: BP 148/76
[2021-01-26 11:42] VITALS: BP 167/82
[2021-01-26 15:06] VITALS: BP 168/77
[2021-01-26 20:22] VITALS: BP 150/67
--- NOTE | 2021-01-27 03:49 | NUR ---
RECEIVED PATIENT AT 1900H.ON ROOM AIR BREATHING SPONTANEOUSLY.WITH RIGHT JUGULAR CENTRAL LINE INTACT.WITH LEA CATHETER INTACT, CATHETER IRRIGATION DONE ONCE.WITH COLOSTOMY INTACT.ALL NEEDS ATTENDED.FOR CONTINOUS MONITORING.
[2021-01-27 04:33] VITALS: BP 142/65
[2021-01-27 05:48] LABS: ALBUMIN 2.1 g/dL (3.4-5.0); CALCIUM 8.5 mg/dL (8.5-10.1); CREATININE 0.8 mg/dL (0.6-1.0); PHOSPHORUS 2.5 mg/dL (2.5-4.9)
[2021-01-27 07:28] LABS: HEMATOCRIT 27.9 % (37.0-47.0); HEMOGLOBIN 8.5 gm/dL (12.0-15.0); MCH 20.2 pg (26.0-34.0); MCHC 30.6 g/dL (28.0-37.0); MCV 66.1 fL (80.0-100.0); RBC 4.22 mil/uL (4.20-5.00); RDW 20.4 % (10.5-14.5); WBC 8.9 thou/uL (4.0-11.0)
[2021-01-27 07:33] VITALS: BP 167/78
[2021-01-27 11:15] VITALS: BP 169/79
--- NOTE | 2021-01-27 11:21 | NUR ---
met with patient who admits from [facility] with urinary sepsis. Patient A/Ox4, discussed role of casemgt. Patient plans return to [facility] once stable. Alerted plan to call dtr. Patient reports no need to call her dtr she knows she is at [facility]. Faxed clinical information to [facility] to update.
[2021-01-27] MEDS ORDERED: VANCOMYCIN500 MG/VIA IV (13:10)
--- NOTE | 2021-01-27 14:31 | NUR ---
VAT CONSULTED FOR PICC PLACEMEMT. LEFT UPPER BASILIC PICC PLACED, TRIMMED 42CM/2CM EXTERNAL. TIP LOCATION VERIFIED WITH 3CG AND RELEASED FOR USE, PER HOSPITAL VASCULAR ACCESS POLICY.
--- NOTE | 2021-01-27 14:48 | NUR ---
Patient to dc today to [facility]. Patient to rec IV antibiotics at facility. sp with [facility] who can accept for IV. Chart copied. Transfer forms faxed. Sawyer mills from [employer] for [phone]. Notified patient, RN and dtr. no further needs
[2021-01-27 15:43] VITALS: BP 184/86
--- NOTE | 2021-01-31 19:10 | HC ---
[facility] [place] [address] CONSULTATION Name: CHRISTI SARAH Room #: [facility] IN M.R.#: [id number] Admission: 01/24/21 Attend Phys: Ubaldo Berg MD Discharge: 01/27/21 Date of : 49 Report #: [id number] THIS REPORT FOR: cc: Fatimah Pressley,Fatimah Brantley,Luis Simon MD ~ DATE OF SERVICE: 01/26/2021 CHIEF COMPLAINT: Right ischial pressure ulceration. HISTORY OF PRESENT ILLNESS: This is a 76-year-old female patient who was admitted with lightheadedness and possible sepsis. She apparently has been not urinating well and has been admitted. She has had a chronic ulcer to the right ischial region. I have been asked to see her in this regard. She denies any pain in that area. She has had prior surgical debridement. 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 SOCIAL HISTORY: Negative for alcohol or tobacco use. CURRENT MEDICATIONS: Include atorvastatin, hydrocodone, enteric-coated aspirin, magnesium, Toprol-XL, Neurontin. ALLERGIES: PENICILLIN. FAMILY HISTORY: Noncontributory. REVIEW OF SYSTEMS: CONSTITUTIONAL: The patient denies fever, chills or weight loss. NEUROLOGICAL: The patient denies any new focal weakness, some tingling. EYES: The patient denies visual changes, redness or drainage. ENT: The patient denies earache, nasal drainage or sore throat. CARDIOVASCULAR: The patient denies chest pain, palpitations, diaphoresis. PULMONARY: The patient denies cough or shortness of breath. ORTHOPEDIC: The patient is aware of the ulceration on the gluteal ischial region. Others systems in a 14-point review of systems are negative. PHYSICAL EXAMINATION: VITAL SIGNS: At this time include temperature 37.1, pulse 68, respiration 17, blood pressure 148/76. GENERAL: This is a chronically ill-appearing male patient appears to be alert, [facility] [address] [place] [address] CONSULTATION Name: CHRISTI SARAH Room #: 205-P [facility] IN M.R.#: [id number] Admission: 01/24/21 Attend Phys: Ubaldo Berg MD Discharge: 01/27/21 Date of : 49 Report #: [id number] in no distress. HEENT: Head normocephalic. Nose and throat clear. NECK: Supple. LUNGS: Diminished. HEART: Regular without obvious murmur. ABDOMEN: Soft, nontender. EXTREMITIES: Sacral gluteal region demonstrates what appears to be a healing stage IV pressure ulcer of the right ischium and it measures approximately 1 x 1 x 0.3 cm. It is healthy clean, granulating, with no evidence of infection, no fluctuance. LABORATORY DATA: Include white blood cell count 12.2 with a hemoglobin of 8.2. Sodium 144, potassium 3.6, chloride 111, CO2 of 21, BUN 41, creatinine 1.2, glucose 74. Albumin is low at 2.1. CLINICAL IMPRESSION: 1. Stage IV right ischial pressure ulceration, which is now much improved since I last saw her. 2. Diabetes mellitus. 3. History of cerebrovascular accident with right hemiparesis. 4. Gdgaohjf-ru-vmuwwh protein calorie malnutrition. RECOMMENDATIONS: At this point in time, patient will be placed on low air loss surface with q. 2 hour turning and positioning. We will use an alginate and a border foam dressing on a daily basis. Continue with nutritional support to maximize wound healing. I appreciate being asked to see her in consultation. <ELECTRONICALLY SIGNED> By: Luis Vogel MD 01/31/21 1910 [id number] 1708 Luis Vogel MD /nt
== END 2021-01-27 17:05 | DRG 871 ==
LOC: ER 13:37 → 2N 19:12 → EROBS 19:12 → 2N 01-25 16:40
PROVIDERS: Emergency Medicine; Internal Medicine Nephrology; Nurse Practitioner Family; Physician Assistant; ADMIT Hospitalist; ATTEND Hospitalist
PROC: 02HV33Z Insertion of Infusion Device into Superior Vena Cava, Percutaneous Approach (ICD-10-PCS; principal; 2021-01-24)
PROC: 30233N1 Transfusion of Nonautologous Red Blood Cells into Peripheral Vein, Percutaneous Approach (ICD-10-PCS; 2021-01-25)
DX: A41.1 Sepsis due to other specified staphylococcus (principal); L89.314 Pressure ulcer of right buttock, stage 4; R65.21 Severe sepsis with septic shock; E43 Unspecified severe protein-calorie malnutrition; N17.0 Acute kidney failure with tubular necrosis; N13.6 Pyonephrosis; I69.351 Hemiplegia and hemiparesis following cerebral infarction affecting right dominant side; D64.9 Anemia, unspecified; Z20.822 Contact with and (suspected) exposure to COVID-19; M19.90 Unspecified osteoarthritis, unspecified site; I10 Essential (primary) hypertension; E78.5 Hyperlipidemia, unspecified; R33.9 Retention of urine, unspecified; E11.9 Type 2 diabetes mellitus without complications; E87.5 Hyperkalemia; N31.9 Neuromuscular dysfunction of bladder, unspecified; B95.2 Enterococcus as the cause of diseases classified elsewhere; R15.9 Full incontinence of feces; R53.81 Other malaise; Z88.0 Allergy status to penicillin; Z68.22 Body mass index [BMI] 22.0-22.9, adult; Z86.718 Personal history of other venous thrombosis and embolism; Z95.828 Presence of other vascular implants and grafts; Z93.3 Colostomy status; Z79.82 Long term (current) use of aspirin; Z79.899 Other long term (current) drug therapy
CPT/HCPCS: 10081; 27000

== ENCOUNTER → 2021-02-02 | Outpatient (CLI) | payer OTHER ==
[~2021-02-02] MED LIST changes: +VANCOMYCIN500 MG/VIA IV
== END ==
LOC: HYPER 09:04
PROVIDERS: ATTEND Emergency Medicine
DX: E11.622 Type 2 diabetes mellitus with other skin ulcer (principal); L89.314 Pressure ulcer of right buttock, stage 4; L98.411 Non-pressure chronic ulcer of buttock limited to breakdown of skin; E44.0 Moderate protein-calorie malnutrition; R54 Age-related physical debility; D63.8 Anemia in other chronic diseases classified elsewhere; I10 Essential (primary) hypertension; E78.5 Hyperlipidemia, unspecified; D64.89 Other specified anemias; Z68.21 Body mass index [BMI] 21.0-21.9, adult; Z79.82 Long term (current) use of aspirin; Z79.899 Other long term (current) drug therapy; Z93.3 Colostomy status

== ENCOUNTER → 2021-02-23 | Outpatient (CLI) | payer OTHER | LOC: HYPER 09:16 | PROVIDERS: ATTEND Emergency Medicine | DX: E11.622 Type 2 diabetes mellitus with other skin ulcer (principal); L89.314 Pressure ulcer of right buttock, stage 4; L98.411 Non-pressure chronic ulcer of buttock limited to breakdown of skin; E44.0 Moderate protein-calorie malnutrition; R54 Age-related physical debility; D63.8 Anemia in other chronic diseases classified elsewhere; I10 Essential (primary) hypertension; E78.5 Hyperlipidemia, unspecified; D64.89 Other specified anemias; Z68.21 Body mass index [BMI] 21.0-21.9, adult; Z79.82 Long term (current) use of aspirin; Z93.3 Colostomy status ==

== ENCOUNTER → 2021-03-09 | Outpatient (CLI) | payer OTHER | LOC: CAT 12:24 | DX: I31.3 Pericardial effusion (noninflammatory) (principal); J98.11 Atelectasis; N31.8 Other neuromuscular dysfunction of bladder; Z87.442 Personal history of urinary calculi ==

== ENCOUNTER → 2021-04-20 | Outpatient (CLI) | payer OTHER | LOC: HYPER 09:32 | PROVIDERS: ATTEND Emergency Medicine | DX: E11.622 Type 2 diabetes mellitus with other skin ulcer (principal); L89.314 Pressure ulcer of right buttock, stage 4; L98.411 Non-pressure chronic ulcer of buttock limited to breakdown of skin; E44.0 Moderate protein-calorie malnutrition; R54 Age-related physical debility; D63.8 Anemia in other chronic diseases classified elsewhere; I10 Essential (primary) hypertension; E78.5 Hyperlipidemia, unspecified; D64.89 Other specified anemias; Z68.21 Body mass index [BMI] 21.0-21.9, adult; Z79.82 Long term (current) use of aspirin; Z93.3 Colostomy status ==

== ENCOUNTER 2021-04-30 11:46 | Emergency (ER) | payer OTHER ==
[~2021-04-30] VITALS: Ht 157.5 cm; Wt 54.4 kg
[2021-04-30 12:24] LABS: HEMATOCRIT 27.8 % (37.0-47.0); HEMOGLOBIN 8.8 gm/dL (12.0-15.0); MCH 21.7 pg (26.0-34.0); MCHC 31.6 g/dL (28.0-37.0); MCV 68.7 fL (80.0-100.0); PLATELET COUNT 384 thou/uL (150-400); RBC 4.05 mil/uL (4.20-5.00); RDW 22.1 % (10.5-14.5); WBC 9.7 thou/uL (4.0-11.0)
[2021-04-30] MEDS ORDERED: VITAMIN C500 M2 PO (12:24)
[2021-04-30 12:25] LABS: CALCIUM 9.9 mg/dL (8.5-10.1); CREATININE 0.8 mg/dL (0.6-1.0); POTASSIUM 3.3 mmol/L (3.5-5.1)
[2021-04-30] MEDS ORDERED: BACTRIM 400-801 EACH PO (12:26)
[2021-04-30] MEDS ORDERED: HYDROCHLOROTH12.5 M1 PO (12:27)
[2021-04-30] MEDS ORDERED: METOPROLOL TART25 MG PO (12:28)
[2021-04-30] MEDS ORDERED: BENTYL 10 MG CA10 M1 PO (12:29)
[2021-04-30] MEDS ORDERED: BIOFREEZE118 ML TOP (12:30)
[2021-04-30 12:31] LABS: TOTAL BILIRUBIN 0.2 mg/dL (0.2-1.0); TOTAL PROTEIN 7.4 g/dL (6.4-8.2)
[2021-04-30] MEDS ORDERED: ALL DAY ALLERGY10 M3 PO (12:32)
[2021-04-30] MEDS ORDERED: FLEXERIL PO (12:33)
[2021-04-30] MEDS ORDERED: DULCOLAX STOOL100 M1 PO (12:34)
[2021-04-30] MEDS ORDERED: ACID REDUCER20 MG PO (12:35)
[2021-04-30] MEDS ORDERED: FERROUS SULFAT325 M1 PO (12:37)
[2021-04-30] MEDS ORDERED: NEURONTIN100 MG PO (12:37)
[2021-04-30 13:16] LABS: ANISOCYTOSIS 1+; MICROCYTES 2+; PLATELET ESTIMATE NORMAL; POLYCHROMASIA SLIGHT
[2021-04-30 14:44] VITALS: BP 109/56
== END 2021-04-30 15:35 | disposition home or self-care (01) ==
LOC: ER 11:46
PROVIDERS: Nurse Practitioner
DX: L89.324 Pressure ulcer of left buttock, stage 4 (principal); L89.314 Pressure ulcer of right buttock, stage 4; M79.605 Pain in left leg; M79.604 Pain in right leg; Z95.1 Presence of aortocoronary bypass graft; M19.90 Unspecified osteoarthritis, unspecified site; E11.622 Type 2 diabetes mellitus with other skin ulcer; L98.419 Non-pressure chronic ulcer of buttock with unspecified severity; E78.5 Hyperlipidemia, unspecified; Z79.899 Other long term (current) drug therapy; Z79.82 Long term (current) use of aspirin; Z79.84 Long term (current) use of oral hypoglycemic drugs; Z88.0 Allergy status to penicillin